=== PATIENT | male | born 1955 | race Caucasian/White ===

== ENCOUNTER 2016-11-21 14:15 | Inpatient (IN) | payer OTHER ==
--- NOTE | ~2016-11-21 | CN ---
Consultation Report [facility] [address] [place]. [address] NAME: DONI PARHAM : 53 STATUS : ADM IN [facility]#: [id number] AGE: 61 ADM/REG DATE : 11/21/16 MR#: [id number] REPORT SERV DATE: 11/22/16 DICTATED BY: IZZY GR DATE: 11/21/16 REPORT STATUS : Draft TRANSCRIBED BY: MODL DATE: 11/21/16 DATE OF CONSULTATION: 11/21/2016 Pulmonary and Critical Care Medicine Consultation REASON FOR CONSULTATION: Management of critical illness on mechanical ventilation in the setting of septic shock. HISTORY OF PRESENT ILLNESS: Mr. Parham is a 61-year-old male, resident of [facility], who has underlying cerebral palsy. He is wheelchair bound at baseline and has a chronic indwelling suprapubic catheter for the last three years or so. Evidently, he was noted by nursing staff at the facility to be more altered with low-grade temp, and upon further assessment, they noted he had bright red bleeding about the area of his suprapubic catheter which had at least been partially pulled out. He was transferred by EMS to our facility, and upon arrival to the emergency department, his vital signs were a pulse of 144, respirations 30, sat in the mid 70s, and with a low grade temp. He was seen by Dr. Barnes and urgently intubated with succinylcholine and etomidate. He also had a left subclavian triple lumen catheter inserted for delivery of vasopressors. He was started on Levophed and loaded with vancomycin, cefepime, and 2 L of IV fluids. He was seen by Dr. Villarreal and admitted to the CCU where we are now asked to assist with management of his critical illness. PAST MEDICAL HISTORY: Cerebral palsy, with confinement to wheelchair at his baseline. He has a colostomy as well as a suprapubic catheter which has been indwelling for at least a couple of years. He has stage III chronic kidney disease, chronic decubitus ulcer which has required debridement in the past, chronic anemia, B12 deficiency, some degree of dementia, osteomyelitis presumably of the sacrum according to records, prior Klebsiella pneumonia and prior E. coli both cultured out of previous urine, unclear if the E. coli was ESBL or not. He has a neurogenic bladder which is the reason for his requirement of the chronic indwelling Mcclain. Depression as well as iron-deficiency anemia. SURGICAL HISTORY: As above. SOCIAL HISTORY: The patient is resident of [facility]. His two sisters, Michelle and Faustino, are his major decision makers, both of whom live in [place]. Michelle is the primary decision maker and her cell phone number is [phone]. He arrived with a POLST form stating full code. However, there were also H and Ps from [facility] dated February 2016 stating that he is a DNR. We will need to clarify that with the sisters this evening. Remote tobacco. No alcohol or illicit drug use. He is dependent on nursing staff at the facility for all activities of daily living. FAMILY HISTORY: Noncontributory. ALLERGIES: NONE KNOWN. HOME MEDICATIONS: Vitamin B12 supplements daily, Nephro-Gamaliel daily, ferrous sulfate daily, Consultation Report [address] [place]. [address] NAME: DONI PARHAM : 53 STATUS : ADM IN [facility]#: [id number] AGE: 61 ADM/REG DATE : 11/21/16 MR#: [id number] REPORT SERV DATE: 11/22/16 DICTATED BY: IZZY GR DATE: 11/21/16 REPORT STATUS : Draft TRANSCRIBED BY: KATI DATE: 11/21/16 Aricept 10 mg daily, Lexapro 10 daily. ADVANCED DIRECTIVES: As above. REVIEW OF SYSTEMS: Limited due to his acuity. However, in discussing with the nursing staff from the facility, it sounds like he has been altered for at least today "not himself." PHYSICAL EXAMINATION: GENERAL: The patient is a male, who is chronically ill appearing. He is having a fairly impressive rigors. VITAL SIGNS: His temp is 101.2, heart rate is 144, respiratory rate is 33 (he is over breathing his sat ventilator rate). His blood pressure is 104/78 on 40 of Levophed. HEENT: Head is atraumatic and normocephalic. Pupils are equal, round, and reactive to light. He has mild conjunctival pallor, but no scleral icterus. Ears, nose, and mouth are unremarkable. He has dry oral mucosa and oral gastric tube and oroendotracheal tube projecting from the mouth. NECK: Supple without JVD. CHEST: Significant for multiple demarco hemangiomas and a subclavian central line on the left which is secured by the clip alone. ABDOMEN: Thin, firm to the touch, not distended with no tympany to percussion and quiet bowel sounds. He does not guard and there is no focal tenderness. : He has a stoma from suprapubic catheter which has now been removed. The stoma is slightly erythematous around the insertion site with a small blood clot, but no purulent material is able to be expressed. His penis has a Mcclain catheter indwelling and draining a small amount of dark urine. There is significant deformity with crusting around the urethral meatus. Scrotum is erythematous. EXTREMITIES: Cold to the touch with diminished pulses. SKIN: Cool to touch and dry with some xerosis. LYMPHATICS: Unremarkable. NEUROLOGIC: Limited and it is unclear what his baseline level of neurologic function is. PSYCHIATRIC: Unable to assess. PERSONAL REVIEW OF DIAGNOSTIC WORKUP COMPLETED IN THE EMERGENCY DEPARTMENT: Lactate is 7.9. CBC, 3.7, hemoglobin is 12.8, hematocrit is 40.2, platelet count is 195. INR is 1.8. A CMP shows a procalcitonin level of 80. Sodium of 144 with potassium of 4.4, carbon dioxide is depressed at 19 significant for metabolic acidosis, BUN is 32, creatinine is 2.74, calcium is 8.4. Troponin is 0.20. ABG shows metabolic acidosis with a pH of 7.25, CO2 of 30, and oxygen at 86 with the bicarb factored at 12.6 on 100% FiO2. This was at 11:56 a.m. A follow up ABG shows some improvement of the metabolic acidosis with a pH of 7.31. However, bicarb remains depressed at 18.2. A urinalysis is significant for greater than 182 white blood cells with large leukocyte esterase and positive nitrite. A chest x-ray shows small lung volumes, but no acute infiltrates. A lower respiratory culture is positive for gram-positive organisms and a few white blood cells. Consultation Report [place] [id number] [place]. [address] NAME: DONI PARHAM : 53 STATUS : ADM IN [facility]#: [id number] AGE: 61 ADM/REG DATE : 11/21/16 MR#: [id number] REPORT SERV DATE: 11/22/16 DICTATED BY: MAILEIZZY CESAR DATE: 11/21/16 REPORT STATUS : Draft TRANSCRIBED BY: MODTsering DATE: 11/21/16 CT of the abdomen shows a small to moderate bibasilar atelectatic changes with trace effusions, mild cardiomegaly, gastric distention, multiple nonobstructive right kidney stones, mild to moderate hydronephrotic changes with suspected bladder outlet obstruction (this is prior to placement of the Mcclain catheter through the penis), some degenerative joint changes and some gastric distention. MRSA screen was negative. An EKG showed sinus tachycardia. Additional medical records were reviewed that were transferred with the patient from [facility]. He was also evaluated in [facility] and [facility] where there are minimal additional records available. Previous records were [facility] were also reviewed. A point of care ultrasound was significant for a hyperdynamic left ventricle with adequate left ventricular squeeze. The right ventricle was nearly collapsed with each cardiac cycle. IVC was collapsing fairly impressively with each respiratory cycle and his internal jugular vein was also noted to be completely collapsed (this was performed after his second liter of fluid in the emergency department after arrival in CCU). IMPRESSION: 1. Acute hypoxemic respiratory failure requiring mechanical ventilation. 2. Septic shock, likely secondary to urinary source with previous history of Klebsiella pneumonia and extended spectrum beta-lactamase organisms of unclear extended spectrum beta-lactamase (status based on old records), profound metabolic acidosis, acute kidney injury (oliguric) superimposed onto chronic kidney disease stage III. 3. Pyuria in the setting of chronic indwelling suprapubic catheter for several years. 4. History of cerebral palsy with wheelchair confinement at baseline. 5. Additional past medical history including B12 deficiency, iron deficiency, pedal edema, dementia, depression, and decubitus ulcer, status post multiple debridements. PLAN: We are currently titrating Levophed at a very high rate. Stress dose steroids have been added and a random cortisol has been collected in advance of that being administered. We will add fixed dose vasopressin and add additional vasopressors on an as-needed basis. Additional IV fluid boluses have been administered to a total of 6 L of crystalloid administered since arrival following up evening labs, the lactate level continues to rise despite administration of fluids and antibiotics including vancomycin, cefepime. In light of unclear past urinary culture history, we will cover ESBL organisms with meropenem tonight and check a random vancomycin level tomorrow morning for additional dosing needs. We will institute lung protective ventilation strategy with high PEEP to FiO2 ratio and high respiratory rate to assist with correction of his metabolic acidosis. He has already received a couple of amps of bicarbonate this evening, and we will follow up additional labs for further needs. He has oliguric renal failure and Nephrology will be consulted to evaluate for potential early CRRT if his urine output does not improve dramatically with Consultation Report [facility] [address] [place]. [address] NAME: DONI PARHAM : 53 STATUS : ADM IN [facility]#: [id number] AGE: 61 ADM/REG DATE : 11/21/16 MR#: [id number] REPORT SERV DATE: 11/22/16 DICTATED BY: IZZY GR DATE: 11/21/16 REPORT STATUS : Draft TRANSCRIBED BY: MODL DATE: 11/21/16 fluid boluses. His home medications will be held as well as the subcutaneous heparin ordered earlier this afternoon in the setting of hematuria and bleeding from his suprapubic catheter site, and he will be placed on PPI for stress ulcer prophylaxis while on mechanical ventilation. Nutrition will be instituted tomorrow with a registered dietitian consult for assistance with managing tube feeds and Wound Care will be is asked to evaluate his decubitus ulcer once he is stable enough to turn. I have already discussed his clinical deterioration with his sister by telephone, and we will continue to update them frequently on his clinical condition tonight. The sister's routinely make his medical decisions jointly and they are currently deliberating goals of care as this is certainly a situation that has the potential to worsen as we move into the evening. He remains a full code for now. Approximately 93 minutes of critical care time at the bedside assessing and stabilizing Mr. Parham this evening. We will continue to make adjustments to his regimen as clinically warranted. Please call with questions. ENZO/KATI Izzy Gr MD / [id number] CC: Fran Bhagat M.D.
--- NOTE | ~2016-11-21 | CN ---
Consultation Report [facility] [address] [place]. [address] NAME: DONI PARHAM : 53 STATUS : ADM IN PAT#: [id number] AGE: 61 ADM/REG DATE : 11/21/16 MR#: [id number] REPORT SERV DATE: 11/22/16 DICTATED BY: WOO GR DATE: 11/22/16 REPORT STATUS : Draft TRANSCRIBED BY: MODL DATE: 11/22/16 DATE OF CONSULTATION: ADDENDUM: Pulmonary Critical Care Addendum Additional documentation on critical care provided to Doni Parham. Please see my original dictated consultation report for details of Mr. Parham's admission. Over the course of the evening in the CCU, he continued to decline clinically with worsening metabolic acidosis and anuric renal failure. Repeat labs showed a rising lactate level to 8.9 around 9:30 this evening despite a total of 6 L of crystalloid being administered. At this point, he is on near maximal dose of Levophed infusion which has been max concentrated and fixed dose of vasopressin in addition to stress dose steroids. We have pushed a total of 5 amps of sodium bicarb in an effort to correct his metabolic acidosis and he is requiring high level of FiO2 and PEEP support to ventilate. His family has gathered including sister, Michelle Graff, and sister, Osmany Gil, who are his two primary medical decision makers. We reviewed the systems based update on his clinical decline including need for high-level mechanical ventilatory support and pressors for hemodynamic support, worsening metabolic acidosis, and anuric renal failure with rising creatinine on most recent set of labs. I did contact Dr. Guaman by phone and discussed the potential for CRRT and brought this to the family who were not interested in dialysis, stating that in such advanced critical illness and overwhelming sepsis, he would elect for being allowed a natural passing. All of his family have visited him here at the bedside in the CCU and all were in agreement that the best approach would be to withdraw artificial support and allow him a more natural . Evidently, his quality of life in the fci is essentially bed bound with occasional trips up to the wheelchair and as noted in my original dictation, he has struggled with sacral decubiti and a chronic urinary infections related to suprapubic catheter. His family expressed that their focus at this point is on using only medications to control symptoms of pain, breathlessness, and anxiety and being allowed to spend time with him. We will update his orders to reflect new goals of care, and I did discuss the case with Dr. Villarreal by telephone and updated him on Mr. Parham's clinical deterioration and he was also in agreement with transition toward comfort focused care. ENZO/KATI Woo Gr MD / [id number] CC: Consultation Report [address] [place]. [address] NAME: DONI PARHAM : 53 STATUS : ADM IN [facility]#: [id number] AGE: 61 ADM/REG DATE : 11/21/16 MR#: [id number] REPORT SERV DATE: 11/22/16 DICTATED BY: WOO GR DATE: 11/22/16 REPORT STATUS : Draft TRANSCRIBED BY: KATI DATE: 11/22/16 Fran Bhagat M.D.
--- NOTE | ~2016-11-21 | DS ---
Discharge Summary [facility] [address] [place]. [address] NAME: DONI GUERRA : 53 STATUS : DIS IN PAT#: [id number] AGE: 61 ADM/REG DATE : 11/21/16 MR#: [id number] REPORT SERV DATE: 12/06/16 DICTATED BY: BALWINDER FAN DATE: 12/06/16 REPORT STATUS : Draft TRANSCRIBED BY: MODL DATE: 12/06/16 ADMISSION DATE: 11/21/2016 DISCHARGE DATE: 11/22/2016 NOTE DATE OF : 11/22/2016. HOSPITAL COURSE: A 61-year-old white male was admitted to [facility] for multiple medical problems. Please see admit note. He was admitted to the critical care unit where his family was notified. They were told of his grave condition and at that point, it was decided to make the patient DNR and comfort measures. He subsequently passed at 0400 hours on 11/22/2016. CLAYTON/KATI Balwinder Fan M.D. / [id number] CC: Fran Bhagat M.D.
--- NOTE | ~2016-11-21 | HP ---
History And Physical [place] [id number] [facility] [place]. [address] NAME: DONI GUERRA : 53 STATUS : ADM IN [facility]#: [id number] AGE: 61 ADM/REG DATE : 11/21/16 MR#: [id number] REPORT SERV DATE: 11/21/16 DICTATED BY: BALWINDER FAN DATE: 11/21/16 REPORT STATUS : Draft TRANSCRIBED BY: MODL DATE: 11/21/16 DATE OF ADMISSION: 11/21/2016 CHIEF COMPLAINT: Altered mental status. HISTORY OF PRESENT ILLNESS: A 61-year-old white male transferred from [facility] to [facility] Emergency Room for the above complaint. Due to the patient's decreased mental status, history and physical is difficult to obtain. Chart and staff were reviewed. The patient has been followed by [facility] for his chronic medical condition - cerebral palsy - and was doing well until staff noticed he had change in his mental status. He was, therefore, transferred to emergency room, where he was noted to have decreased blood pressures, subsequently had respiratory failure with need for intubation, and other multiple abnormalities. He was, therefore, admitted to the ICU on ventilator, and will be followed for workup of his multiple medical problems. Of note is that his only really major medical problem is a chronic suprapubic Mcclain due to neurogenic bladder and his cerebral palsy. ALLERGIES: NO KNOWN DRUG ALLERGIES. MEDICATIONS: Please see MAR. PAST MEDICAL HISTORY: Chart review shows a past medical history of cerebral palsy, B12 deficiency, anemia of chronic disease, dementia, overall debilitation, history of osteomyelitis, chronic colostomy, chronic kidney disease questionable stage, penile trauma secondary to chronic Mccalin with chronic deformities. PAST SURGICAL HISTORY: Once again, chart review shows the patient with history of some sort of abdominal surgeries due to scars, left lower quadrant colostomy, suprapubic catheter. SOCIAL HISTORY: The patient resides at [facility], never , [employer], does have a sister who helps with his care, no smoking or drinking. FAMILY HISTORY: Unable to obtain due to the patient's decreased mental status. REVIEW OF SYSTEMS: Unable to obtain due to the patient's decreased mental status. PHYSICAL EXAMINATION: VITAL SIGNS: Please see ICU flow sheet. GENERAL: White male intubated and sedated at this time. HEAD: Normocephalic, atraumatic. EYES: Anicteric. History And Physical [address] [address] NAME: DONI GUERRA : 53 STATUS : ADM IN PAT#: [id number] AGE: 61 ADM/REG DATE : 11/21/16 MR#: [id number] REPORT SERV DATE: 11/21/16 DICTATED BY: BALWINDER FAN DATE: 11/21/16 REPORT STATUS : Draft TRANSCRIBED BY: KATI DATE: 11/21/16 ENT: ET tube present. We will place NG tube soon. NECK: No JVD. No thyromegaly. LUNGS: Bilateral rhonchi and rales. HEART: Tachycardic, but otherwise regular. ABDOMEN: Old surgical scars, left lower quadrant ostomy bag, suprapubic Mcclain site is present, but unfortunately, Mcclain has been removed. : Chronic penile trauma probably secondary to chronic Mcclain with some acute bleeding at this time. Penile Mcclain was placed. EXTREMITIES: Wasting is present. LYMPH: No edema. NEURO: Sedated at this time. LABORATORY DATA: CBC shows WBC 3, H and H 12.8 and 40.2, PLT 194. Chemistry shows Na 144, K 4.4, CO 107, CO2 of 19, BUN 32, creatinine 2.4, GFR 24, glucose 97. Blood gas shows pH 7.25, pCO2 of 30, PO2 86, bicarb 12, O2 saturation 100% on ventilatory status. Troponins elevated at 0.2. Lactic acid and procalcitonin are elevated. IMAGING: Chest x-ray shows bilateral atelectasis in the bases, otherwise unremarkable. CT of the abdomen shows right renal stones that are nonobstructing, suprapubic Mcclain that appears to be out, and bilateral hydronephrosis that is mild. CONSULTATIONS: We will consult Urology and Critical Care. IMPRESSION: 1. Sepsis - questionable cause. 2. Acute respiratory failure with ventilatory support at this time -questionable cause. 3. Acute kidney injury on chronic kidney disease stage 3 at this time. 4. Elevated troponin. 5. Metabolic acidosis. 6. Gross hematuria - questionable cause with chronic penile injury. 7. Altered mental status - questionable cause. 8. Cerebral palsy. 9. Neurogenic bladder with chronic suprapubic Mcclain and bilateral hydronephrosis. PLAN: 1. We will admit to ICU and support as needed. The patient is at risk for multisystem organ failure. 2. We will support with ventilator support and check blood gases. We will have respiratory followup. The patient is at risk for pneumonia or ARDS. 3. Follow renal function, as the patient is at risk for worsening renal function. Hemodialysis. 4. Consult Cardiology and follow troponins, as the patient is at risk for acute IN. 5. We will consult Urology to evaluate his hematuria and suprapubic Mcclain. The patient is at risk for UTI and pyelonephrosis. 6. Follow his mental status once sedation is completed. The patient is at risk for CVA. 7. Make sure his needs are known with cerebral palsy. 8. DVT precautions. History And Physical [address] [address] NAME: DONI GUERRA : 53 STATUS : ADM IN [facility]#: [id number] AGE: 61 ADM/REG DATE : 11/21/16 MR#: [id number] REPORT SERV DATE: 11/21/16 DICTATED BY: BALWINDER FAN DATE: 11/21/16 REPORT STATUS : Draft TRANSCRIBED BY: MODL DATE: 11/21/16 9. Order additional labs for major workup. 10.We will place medications down his NG tube or OG due. 11.DVT precautions. RH/MODL Balwinder Fan M.D. / [id number] CC: Fran Bhagat M.D.
[2016-11-21 12:29] LABS: BASOPHILS 0.3 %; BASOPHILS ABSOLUTE 0.01 10/3/uL (0.0-0.16); EOSINOPHILS 0 %; HEMATOCRIT 40.2 % (40.0-51.0); HEMOGLOBIN 12.8 g/dL (13.6-17.8); IMMATURE GRANULOCYTES 1.1 %; IMMATURE GRANULOCYTES ABSOLUTE 0.04 10/3/uL (0.0-0.11); LYMPHOCYTES 22.6 %; LYMPHOCYTES ABSOLUTE 0.83 10/3/uL (0.67-4.30); MEAN CORPUS HGB CONC 31.8 g/dL (32.0-36.0); MEAN CORPUSCULAR HEMOGLOB 27.2 pg (26.0-34.0); MEAN CORPUSCULAR VOLUME 85.5 fL (80-100); MEAN PLATELET VOLUME 9.5 fL (9.2-13.0); MONOCYTES 0.8 %; MONOCYTES ABSOLUTE 0.03 10/3/uL (0.21-1.20); NEUTROPHILS 75.2 %; NEUTROPHILS ABSOLUTE 2.76 10/3/uL (2.02-8.40); PLATELET COUNT 194 10/3/uL (150-400); RBC DISTRIBUTION WIDTH 17.1 % (12.0-16.0); WHITE BLOOD CELLS 3.7 10/3/uL (4.5-10.5)
[2016-11-21 12:30] LABS: MANUAL DIFF NO %
[2016-11-21 12:45] LABS: INTERNATIONAL NORMAL RATI 1.8 UNITS (-); PROTIME (NOT ORD) 21.1 SEC (12.0-14.5)
[2016-11-21 12:46] LABS: PARTIAL THROMBO TIME 53.8 SEC (22.5-37.2)
[2016-11-21 12:47] LABS: LACTATE 7.9 MMOL/L (0.3-2.4)
[2016-11-21 12:48] LABS: A/G RATIO 0.5 (0.7-1.9); ALBUMIN 2.6 G/DL (3.5-5.0); ALKALINE PHOSPHATASE 135 U/L (45-117); BUN (BLOOD UREA NITROGEN) 32 MG/DL (6-23); CALCIUM, SERUM 8.4 MG/DL (8.5-10.4); CHLORIDE, SERUM 107 MMOL/L (96-112); CO2 (CARBON DIOXIDE) 19 MMOL/L (24-34); CREATININE 2.74 MG/DL (0.70-1.30); GFR AFRICAN AMERICAN 28 ML/MIN (>=60); GFR NON AFRICAN AMERICAN 24 ML/MIN (>=60); GLOBULIN 5.4 G/DL (2.5-4.1); GLUCOSE, SERUM 97 MG/DL (60-99); SGPT(ALT) 38 U/L (5-65); SODIUM, SERUM 144 MMOL/L (135-148)
[2016-11-21 12:49] LABS: POTASSIUM, SERUM 4.4 MMOL/L (3.5-5.3); SGOT(AST) 39 U/L (5-40)
[2016-11-21 13:09] LABS: PROCALCITONIN 79.99 ng/mL (<0.5)
[2016-11-21 13:57] LABS: ALLENS TEST Pos; BE (BASE EXCESS) -13.3 MEQ/L (0 +/- 2.5); CARBOXYHEMOGLOBIN 0.9 % (0-3); HCO3 (ACTUAL BICARBONATE) 12.6 MEQ/L (23-27); HEMOBLOGIN CONTENT 12.9 G/DL (14-18); INSTRUMENT SERIAL # 8087; METHEMOGLOBIN 0.3 % (0-3); OPERATOR ID 14335; PCO2 (CO2 TENSION) 30 MMHG (35-45); PO2 (O2 TENSION) 86 MMHG (79-93); SAMPLE Arterial; pH 7.25 (7.37-7.43)
[~2016-11-21 14:15] MED LIST: ARICEPT10 PO; CYANO1000T PO; FERROUS SULF325 M1 PO; LEXAPRO10 PO; NEPHRO-VITE PO
[2016-11-21 19:33] LABS: ASCORBIC ACID (UR NOT ORDER) NEG (NEG); BILIRUBIN, URINE NEGATIVE (NEG); KETONE, URINE NEGATIVE (NEG); LEUKOCYTE ESTERASE(NOT OR LARGE (NEG); WBC (NOT ORDERED) (RFLEX) > 182 (0-5)
[2016-11-21 20:56] LABS: ALLENS TEST Pos; BE (BASE EXCESS) -7.4 MEQ/L (0 +/- 2.5); CARBOXYHEMOGLOBIN 0.2 % (0-3); HCO3 (ACTUAL BICARBONATE) 18.2 MEQ/L (23-27); HEMOBLOGIN CONTENT 11.5 G/DL (14-18); INSTRUMENT SERIAL # 35151; METHEMOGLOBIN 0.8 % (0-3); MODE CMV; O2 CONTENT 16.5 VOL% (18-24); OPERATOR ID 33214; PCO2 (CO2 TENSION) 37 MMHG (35-45); PO2 (O2 TENSION) 254 MMHG (79-93); SAMPLE Arterial; TIDAL VOLUME 650 ML; pH 7.31 (7.37-7.43)
[2016-11-21 21:39] LABS: HEMOGLOBIN 10.8 g/dL (13.6-17.8)
[2016-11-21 21:41] LABS: HEMATOCRIT 33.8 % (40.0-51.0)
[2016-11-21 21:54] LABS: A/G RATIO 0.5 (0.7-1.9); ALBUMIN 2.1 G/DL (3.5-5.0); ALKALINE PHOSPHATASE 84 U/L (45-117); BUN (BLOOD UREA NITROGEN) 37 MG/DL (6-23); CALCIUM, SERUM 7.8 MG/DL (8.5-10.4); CHLORIDE, SERUM 110 MMOL/L (96-112); CO2 (CARBON DIOXIDE) 19 MMOL/L (24-34); CREATININE 3.55 MG/DL (0.70-1.30); GFR AFRICAN AMERICAN 20 ML/MIN (>=60); GFR NON AFRICAN AMERICAN 17 ML/MIN (>=60); GLOBULIN 4.6 G/DL (2.5-4.1); GLUCOSE, SERUM 100 MG/DL (60-99); POTASSIUM, SERUM 3.7 MMOL/L (3.5-5.3); SGOT(AST) 101 U/L (5-40); SGPT(ALT) 51 U/L (5-65); SODIUM, SERUM 147 MMOL/L (135-148); TOTAL BILIRUBIN 1.8 MG/DL (0-1.2); TOTAL PROTEIN 6.7 G/DL (6.0-8.5)
[2016-11-22 00:09] LABS: ALLENS TEST Pos; BE (BASE EXCESS) -9.4 MEQ/L (0 +/- 2.5); CARBOXYHEMOGLOBIN 0.2 % (0-3); HCO3 (ACTUAL BICARBONATE) 16.4 MEQ/L (23-27); HEMOBLOGIN CONTENT 11.7 G/DL (14-18); INSTRUMENT SERIAL # 35151; METHEMOGLOBIN 0.9 % (0-3); O2 CONTENT 16.3 VOL% (18-24); OPERATOR ID 33214; PCO2 (CO2 TENSION) 35 MMHG (35-45); PO2 (O2 TENSION) 138 MMHG (79-93); SAMPLE Arterial; TIDAL VOLUME 450 ML; pH 7.28 (7.37-7.43)
[2016-11-22 00:26] LABS: HEMATOCRIT 35.9 % (40.0-51.0); HEMOGLOBIN 11.5 g/dL (13.6-17.8); MEAN CORPUSCULAR VOLUME 87.3 fL (80-100); MEAN PLATELET VOLUME 9.5 fL (9.2-13.0); RBC DISTRIBUTION WIDTH 16.4 % (12.0-16.0); RED CELL COUNT 4.11 10/6/uL (4.7-6.1)
[2016-11-22 00:27] LABS: PLATELET COUNT 83 10/3/uL (150-400); WHITE BLOOD CELLS 10.1 10/3/uL (4.5-10.5)
[2016-11-22 00:30] LABS: MANUAL DIFF YES %
[2016-11-22 00:40] LABS: A/G RATIO 0.5 (0.7-1.9); ALKALINE PHOSPHATASE 79 U/L (45-117); BUN (BLOOD UREA NITROGEN) 35 MG/DL (6-23); CALCIUM, SERUM 7.6 MG/DL (8.5-10.4); CHLORIDE, SERUM 109 MMOL/L (96-112); CO2 (CARBON DIOXIDE) 19 MMOL/L (24-34); CREATININE 3.28 MG/DL (0.70-1.30); GFR AFRICAN AMERICAN 22 ML/MIN (>=60); GFR NON AFRICAN AMERICAN 19 ML/MIN (>=60); GLOBULIN 4.4 G/DL (2.5-4.1); GLUCOSE, SERUM 101 MG/DL (60-99); PHOSPHORUS, SERUM 3.8 MG/DL (2.5-4.5); POTASSIUM, SERUM 3.7 MMOL/L (3.5-5.3); SGOT(AST) 134 U/L (5-40); SGPT(ALT) 62 U/L (5-65); SODIUM, SERUM 146 MMOL/L (135-148); TOTAL BILIRUBIN 1.7 MG/DL (0-1.2); TOTAL PROTEIN 6.4 G/DL (6.0-8.5)
[2016-11-22 00:47] LABS: BAND NEUTROPHILS 29 %; EOSINOPHILS 2 %; LYMPHOCYTES 4 %; MONOCYTES 3 %; NEUTROPHILS ABSOLUTE (CALC) 9.19 10/3/uL (2.02-8.40); PLATELET ESTIMATE DEC (ADEQUATE); SEGMENTED NEUTROPHIL (0) 62 %; TOTAL NUCLEATED CELLS 100
[2016-11-22 00:48] LABS: POIKILOCYTOSIS 1+ (5-10/OIF) (0-5/OIF); TOXIC GRANULATION 1+
[2016-11-22 00:49] LABS: TEARDROP SHAPED RBCS OCC (0-2/OIF)
== END 2016-11-22 06:14 | disposition expired | DRG 698 ==
LOC: ER 14:15 → CCU 15:01
PROVIDERS: Family Medicine; Hospitalist; Internal Medicine Critical Care Medicine
PROC: 5A1935Z Respiratory Ventilation, Less than 24 Consecutive Hours (ICD-10-PCS; principal; 2016-11-21)
PROC: 0BH17EZ Insertion of Endotracheal Airway into Trachea, Via Natural or Artificial Opening (ICD-10-PCS; 2016-11-21)
PROC: 05H633Z Insertion of Infusion Device into Left Subclavian Vein, Percutaneous Approach (ICD-10-PCS; 2016-11-21)
DX: T83.518A Infection and inflammatory reaction due to other urinary catheter, initial encounter (principal); A41.9 Sepsis, unspecified organism; J96.01 Acute respiratory failure with hypoxia; R65.21 Severe sepsis with septic shock; L89.159 Pressure ulcer of sacral region, unspecified stage; N17.9 Acute kidney failure, unspecified; N18.3 Chronic kidney disease, stage 3 (moderate); E87.2 Acidosis; N13.30 Unspecified hydronephrosis; F03.90 Unspecified dementia, unspecified severity, without behavioral disturbance, psychotic disturbance, mood disturbance, and anxiety; Z51.5 Encounter for palliative care; Z66 Do not resuscitate; T83.83XA Hemorrhage due to genitourinary prosthetic devices, implants and grafts, initial encounter; G80.9 Cerebral palsy, unspecified; R31.9 Hematuria, unspecified; N31.9 Neuromuscular dysfunction of bladder, unspecified; E53.8 Deficiency of other specified B group vitamins; D63.8 Anemia in other chronic diseases classified elsewhere; R00.0 Tachycardia, unspecified; N20.0 Calculus of kidney; F32.9 Major depressive disorder, single episode, unspecified; D50.9 Iron deficiency anemia, unspecified; Z93.3 Colostomy status; Z99.3 Dependence on wheelchair
CPT/HCPCS: 31720; 36415; 36600; 71010; 74000; 74176; 80053; 81001; 82330; 82533; 82805; 83605; 83735; 84100; 84145; 84484; 85014; 85018; 85025; 85610; 85730; 86850; 86900; 86901; 87040; 87070; 87077; 87086; 87186; 87205; 87641; 93005; 94002; 94640; 94770; 96365; 96368; 96375; 99291; A9270-GY; J0692; J1720; J2185; J3370